=== PATIENT | male | born 1945 | race Caucasian/White ===

== ENCOUNTER 2018-02-08 13:10 | Observation (INO) | payer MEDICARE ==
--- NOTE | 2018-02-08 14:07 | C.PDOC ---
History Of Present Illness <Doug Caceres - Last Filed: 02/08/18 18:10> <Diann Nieves - Last Filed: 02/08/18 18:38> CC: Left foot ( Palmar) surface injury Patient is 72 year old male with past medical history of HTN, who presents to the ED with complaint of left foot injury. As per patient, he stepped on a sewing needle in his living room. Patient denies any heavy bleeding post injury. Patient denies any other symptoms. Patient does not recall his last tetanus injection. (Doug Caceres) History Per: Patient History/Exam Limitations: no limitations Onset/Duration Of Symptoms: Hrs Current Symptoms Are (Timing): Still Present Severity: None Pain Scale Rating Of: 0 Location: Left foot palmar surface Additional History Per: Patient <Doug Caceres - Last Filed: 02/08/18 18:10> <Diann Nieves - Last Filed: 02/08/18 18:38> Chief Complaint (Nursing): Lower Extremity Problem/Injury Past Medical History - Medical History PMH: HTN Surgical History: No Surg Hx Family History: States: No Known Family Hx - Social History Hx Tobacco Use: No Hx Alcohol Use: No Hx Substance Use: No <Doug Caceres - Last Filed: 02/08/18 18:10> Vital Signs: Last Vital Signs Temp 98.1 F 02/08/18 13:43 Pulse 81 02/08/18 13:43 Resp 18 02/08/18 13:43 BP 134/79 02/08/18 13:43 Pulse Ox 97 02/08/18 18:25 Review Of Systems Constitutional: Negative for: Fever, Chills, Weakness, Malaise Eyes: Negative for: Pain, Vision Change Respiratory: Negative for: Shortness of Breath Gastrointestinal: Negative for: Nausea, Vomiting, Abdominal Pain Musculoskeletal: Positive for: Foot Pain (Left) Neurological: Negative for: Weakness, Numbness <Doug Caceres - Last Filed: 02/08/18 18:10> Physical Exam - Physical Exam Appears: No Acute Distress Skin: Normal Color Head: Atraumatic, Normacephalic Eye(s): bilateral: EOMI Neck: Normal, Normal ROM Chest: Symmetrical Cardiovascular: Rhythm Regular Respiratory: Normal Breath Sounds Gastrointestinal/Abdominal: Normal Exam, Bowel Sounds, Soft, No Tenderness Extremity: Normal ROM, Tenderness (Left foot palmar surface tenderness, medially. < pea-size wound ), No Pedal Edema, No Calf Tenderness, No Deformity, No Swelling Pulses: Left Dorsalis Pedis: Normal Neurological/Psych: Oriented x3, Normal Speech <Doug Caceres - Last Filed: 02/08/18 18:10> ED Course And Treatment O2 Sat by Pulse Oximetry: 97 <Doug Caceres - Last Filed: 02/08/18 18:10> - Laboratory Results Result Diagrams: 02/08/18 18:10 ECG: Interpreted By Me ECG Rhythm: Sinus Rhythm ECG Interpretation: Normal Rate From EC Pulse Ox Interpretation: Normal - Radiology CXR: Interpreted by Me, Read By Radiologist CXR Interpretation: Yes: No Acute Disease - Physician Consult Information Time Consulting Physician Contacted: 17:18 Physician Contacted: Bradley Alexis Outcome Of Conversation: AWARE OF ER FINDINGS, PREFERS POD CONSULT W DR HAYWOOD <Diann Nieves - Last Filed: 02/08/18 18:38> Supervising Attending Note <Doug Caceres - Last Filed: 02/08/18 18:10> - Supervising Attending Note Comment: RESIDENT DR CACERES - Attestation: I have personally seen and examined this patient.: Yes I have fully participated in the care of the patient.: Yes I have reviewed all pertinent clinical information, including history, physical exam and plan: Yes <Diann Nieves - Last Filed: 02/08/18 18:38> - Notes: Notes:: ELIDIA NAIL POSSIBLE FB RETAINED L FOOT ONSET JACKSPOOLER. DENIES OTHER ASSOC SX. EXAM MILD DIST NONTOXIC. L FOOT TINY PUNCTATE LESION SOLE FOOT. NO PALP SUBCUT FB. NO DC, BLEEDING, ERYTHEMA (Diann Nieves) Medical Decision Making <Doug Cacerse - Last Filed: 02/08/18 18:10> <Diann Nieves - Last Filed: 02/08/18 18:38> Medical Decision Making: Left foot X-ray: Retained product of foreign body ( Nail). Official report: 1.5 mm radiopaque needle in the plantar soft tissues. Discussed case with podiatry resident; Podiatry examined patient at bedside in fast track and as per discussion between Podiatry resident and on-call attending , medical decision was made for 7:15pm for OR time with on-call attending. Patient's PMD wsa made aware and was requesting a different precision machinist for consultation. After long discussion, between attendings, patient's PMD is agreeable to on-call precision machinist team and patient will be going to the OR this evening. (Doug Caceres) Disposition Discussed With : Diann Nieves <Doug Caceres - Last Filed: 02/08/18 18:10> - Disposition Disposition Time: 17:22 - POA Present On Arrival: Falls Or Trauma <Diann Nieves - Last Filed: 02/08/18 18:38> - Disposition Disposition: HOSPITALIZED Condition: STABLE - Clinical Impression Clinical Impression: Foreign body in foot
[2018-02-08] MEDS ORDERED: Tdap Vaccine 0.5 ml Vial (10-64 yrs) IM ONE ×3 (14:38→17:27)
[2018-02-08] MEDS ORDERED: Tetanus/Diphtheria Toxoids 0.5 ml Syringe IM ONE ×3 (15:15→16:05)
--- NOTE | 2018-02-08 15:31 | RAD ---
Date of service: 02/08/2018 PROCEDURE: Left Foot Radiographs. HISTORY: Left foot palmar surface injury, Stepped on a needle COMPARISON: None. FINDINGS: BONES: Bone alignment and mineralization are normal. There is no acute displaced fracture or bone destruction. JOINTS: Normal. SOFT TISSUES: There is a 1.5 cm linear radiopaque foreign body in the plantar soft tissues. OTHER FINDINGS: None. IMPRESSION: 1.5 mm radiopaque needle in the plantar soft tissues.
[2018-02-08] MEDS ORDERED: Lidocaine 1% Inj (20ml) INFIL ONE (16:01)
[2018-02-08] MEDS ORDERED: Lidocaine 2% MPF (5 ml) Inj ONE ×2 (16:03→18:53)
[2018-02-08] MEDS ORDERED: Sodium Chloride 0.9% 1,000 ML IV ONE (17:15)
--- NOTE | 2018-02-08 18:01 | RAD ---
HISTORY: Pre Op COMPARISON: None available. TECHNIQUE: Chest PA and lateral FINDINGS: LUNGS: Hyperinflation may be seen in the setting of COPD. Increased lucencies especially within the bilateral upper lung suarez compatible with underlying emphysema. No focal consolidation. Please note that chest x-ray has limited sensitivity for the detection of pulmonary masses. PLEURA: No significant pleural effusion identified. No definite pneumothorax . CARDIOVASCULAR: Heart size appears within normal limits. OSSEOUS STRUCTURES: Degenerative changes of the spine. VISUALIZED UPPER ABDOMEN: Unremarkable. OTHER FINDINGS: None. IMPRESSION: COPD/emphysema.
[2018-02-08] MEDS ORDERED: Sodium Chloride 0.9% 1,000 ML ONE (18:04)
[2018-02-08 18:13] LABS: BASO # 0.1 K/uL (0.0-0.2); EOS # 0.3 K/uL (0.0-0.7); EOS % 4.3 % (0.0-4.0); HEMOGLOBIN 13.9 g/dL (12.0-18.0); LYMPH # 1.5 K/uL (1.0-4.3); LYMPH % 22.5 % (20.0-40.0); MEAN CELL VOLUME 93.4 fL (80.0-94.0); MEAN CORPUSCULAR HEMOGLOBIN 31.9 pg (27.0-31.0); MEAN CORPUSCULAR HGB CONC 34.2 g/dL (33.0-37.0); MEAN PLATELET VOLUME 7.6 fL (7.2-11.7); MONO # 0.6 K/uL (0.0-0.8); MONO % 9.8 % (0.0-10.0); NEUT # 4.1 K/uL (1.8-7.0); NEUT % 62.4 % (50.0-75.0); NRBC % 0.1 % (0.0-2.0); RBC 4.36 Mil/uL (4.40-5.90); RED CELL DISTRIBUTION WIDTH 13.3 % (11.5-14.5); WHITE BLOOD COUNT 6.6 K/uL (4.8-10.8)
[2018-02-08 18:38] LABS: PROTHROMBIN TIME 11.2 SECONDS (9.7-12.2)
[2018-02-08 18:51] LABS: BLOOD UREA NITROGEN 22 mg/dL (9-20); CALCIUM 9.4 mg/dl (8.6-10.4); GFR NON-AFRICAN AMERICAN > 60
[2018-02-08] MEDS ORDERED: Bupivacaine 0.25% 20 ML INJ IJ ONE (18:53)
[2018-02-08] MEDS ORDERED: Piperacillin/Tazobact 3.375 gm 100 ML IVPB ONE (18:53)
[2018-02-08 18:57] LABS: SQUAMOUS EPITHIAL < 1 /hpf (0-5); URINE BACTERIA RARE (<OCC); URINE BILIRUBIN NEGATIVE (NEGATIVE); URINE BLOOD NEGATIVE (NEGATIVE); URINE CLARITY Clear (Clear); URINE COLOR Straw (YELLOW); URINE GLUCOSE (UA) NORMAL (Normal); URINE LEUKOCYTE ESTERASE NEG Leu/uL (Negative); URINE PROTEIN NEGATIVE (NEGATIVE); URINE UROBILINOGEN NORMAL mg/dL (0.2-1.0)
[2018-02-08] MEDS ORDERED: Midazolam 2 MG/2 ML VIAL ONE (19:36)
--- NOTE | 2018-02-08 19:52 | CP.PCM.CON ---
History of Present Illness - History of Present Illness History of Present Illness: cc: stepped on a sewing needle HPI: pt is a 72 yo male who had been following [facility] for 2 years now. He is a known hypertensive, with very mild hyperlipidemia controlled with diet. When initially seen 2 years ago, Mr. Elizabeth was pre-diabetic with a high of 6.3 Since then, he had been very compliant with treatment and has managed to get his hgbA1c down to normal levels on diet and lifestyle changes alone. Pt comes in today complaining of having stepped on a needle. Indeed a sharp, metallic object almost abuts the plantar/ventral surface of the calcaneus. I was asked to evaluate the patient from a medical [place] for possible OR tonight. Review of Systems - Review of Systems Review of Systems: Calm, not anxious, no excessive pain noted - Constitutional Constitutional: absent: As Per HPI, Anorexia, Chills, Daytime Sleepiness, Excessive Sweating, Fatigue, Fever, Frequent Falls, Headache, Increased Appetite , Lethargy, Malaise, Night Sweats, Snoring, Sleep Apnea, Weight Gain, Weight Loss, Weakness, Other - EENT Eyes: absent: As Per HPI, Blind Spots, Blurred Vision, Change in Vision, Decreased Night Vision, Diplopia, Discharge, Dry Eye, Exophthalmos, Floaters, Irritation, Itchy Eyes, Loss of Peripheral Vision, Pain, Photophobia, Requires Corrective Lenses, Sees Flashes, Spots in Vision, Tunnel Vision, Other Visual Disturbances, Loss of Vision, Other Ears: Abnormal Hearing Nose/Mouth/Throat: absent: As Per HPI, Epistaxis, Nasal Congestion, Nasal Discharge, Nasal Obstruction, Nasal Trauma, Nose Pain, Post Nasal Drip, Sinus Pain, Sinus Pressure, Bleeding Gums, Change in Voice, Dental Pain, Dry Mouth, Dysphagia, Halitosis, Hoarsness, Lip Swelling, Mouth Lesions, Mouth Pain, Odynophagia, Sore Throat, Throat Swelling, Tongue Swelling, Facial Pain, Neck Pain, Neck Mass, Other - Cardiovascular Cardiovascular: absent: As Per HPI, Acrocyanosis, Chest Pain, Chest Pain at Rest , Chest Pain with Activity, Claudication, Diaphoresis, Dyspnea, Dyspnea on Exertion, Edema, Irregular Heart Rhythm, Pain Radiating to Arm/Neck/Jaw, Leg Edema, Leg Ulcers, Lightheadedness, Orthopnea, Palpitations, Paroxysmal Nocturnal Dyspnea, Pedal Edema, Radiating Pain, Rapid Heart Rate, Slow Heart Rate, Syncope, Other - Respiratory Respiratory: absent: As Per HPI, Cough, Dyspnea, Hemoptysis, Dyspnea on Exertion , Wheezing, Snoring, Stridor, Pain on Inspiration, Chest Congestion, Excessive Mucous Production, Change in Mucous Color, Pain with Coughing, Other - Gastrointestinal Gastrointestinal: absent: As Per HPI, Abdominal Pain, Belching, Bloating, Change in Bowel Habits, Change in Stool Character, Coffee Ground Emesis, Constipation, Cramping, Diarrhea, Dyspepsia, Dysphagia, Early Satiety, Excessive Flatus, Fecal Incontinence, Heartburn, Hematemesis, Hematochezia, Loose Stools, Melena, Nausea, Odynophagia, Temesmus, Vomiting, Other - Genitourinary Genitourinary: absent: As Per HPI, Change in Urinary Stream, Difficulty Urinating, Dysuria, Flank Pain, Hematuria, Pyuria, Nocturia, Urinary Incontinence, Urinary Frequency, Urinary Hesitance, Urinary Urgency, Voiding Freq/Small Amts, Freq UTI, Hx Renal/Bladder Calculi, Hx /Renal Surgery, Bladder Distension, Other - Musculoskeletal Musculoskeletal: absent: As Per HPI, Abnormal Gait, Arthralgias, Atrophy, Back Pain, Deformity, Joint Swelling, Limited Range of Motion, Loss of Height, Muscle Cramps, Muscle Weakness, Myalgias, Neck Pain, Numbness, Radiating Pain into Limb, Stiffness, Tingling, Other Additional comments: + metallic object underneath calcaneus on xray - Neurological Neurological: absent: As Per HPI, Abnormal Gait, Abnormal Hearing, Abnormal Movements, Abnormal Speech, Behavioral Changes, Burning Sensations, Confusion, Convulsions, Disequilibrium, Dizziness, Numbness, Focal Weakness, Frequent Falls , Headaches, Lack of Coordination, Loss of Vision, Memory Loss, Paresthesias, Radicular Pain, Restless Legs, Sensory Deficit, Syncope, Tingling, Tremor, Vertigo, Weakness, Other Visual Disturbances, Other - Psychiatric Psychiatric: absent: As Per HPI, Abnormal Sleep Pattern, Anhedonia, Anxiety, Auditory Hallucinations, Behavioral Changes, Change in Appetite, Change in Libido, Confusion, Depression, Difficulty Concentrating, Hallucinations, Homicidal Ideation, Hopelessness, Irritability, Memory Loss, Mood Swings, Panic Attacks, Paranoia, Suicidal Ideation, Visual Hallucinations, Tactile Hallucinations, Other - Endocrine Endocrine: absent: As Per HPI, Change in Body Appearance, Change in Libido, Cold Intolorance, Deepening of Voice, Excessive Sweating, Fatigue, Flushing, Heat Intolorance, Increase in Ring/Shoe/Hat Size, Palpitations, Polydipsia, Polyphagia, Polyuria, Other - Hematologic/Lymphatic Hematologic: absent: As Per HPI, Easy Bleeding, Easy Bruising, Lymphadenopathy, Other Past Patient History - Tetanus Immunizations Tetanus Immunization: Unknown - Past Medical History & Family History Past Medical History?: Yes - Past Social History Smoking Status: Unknown If Ever Smoked Chewing Tobacco Use: No Cigar Use: No Alcohol: Other (suspect) Drugs: Denies Home Situation {Lives}: Alone - CARDIAC Hx Cardiac Disorders: No Hx Angina: No Hx Atrial Fibrillation: No Hx Cardia Arrhythmia: No Hx Circulatory Problems: No Hx Congestive Heart Failure: No (??) Hx Heart Attack: No Hx Heart Murmur: No Hx Heart Transplant: No Hx Hypercholesterolemia: No Hx Hypertension: Yes Hx Hypotension: No Hx Internal Defibrillator: No Hx Mitral Valve Prolapse: No Hx Pacemaker: No Hx Peripheral Edema: No Hx Peripheral Vascular Disease: No - PULMONARY Hx Respiratory Disorders: Yes Hx Chronic Obstructive Pulmonary Disease (COPD): Yes Hx Emphysema: No Hx Lung Cancer: No Hx Pneumonia: No Hx Pulmonary Edema: No Hx Pulmonary Embolism: No Hx Respiratory Aspiration: No Hx Respiratory Tract Infection: No Hx Sleep Apnea: No Hx Tuberculosis: No - NEUROLOGICAL Hx Neurological Disorder: No Hx Alzheimer's Disease: No HX Cerebrovascular Accident: No Hx Dementia: No Hx Dizziness: No Hx Meningitis: No Hx Migraine: No Hx Multiple Sclerosis: No Hx Paralysis: No Hx Parkinson's Disease: No Hx Seizures: No Hx Syncope: No Hx Transient Ischemic Attacks (TIA): No Hx Vertigo: No - ENDOCRINE/METABOLIC Hx Endocrine Disorders: Yes Hx Diabetes Mellitus Type 2: Yes - GASTROINTESTINAL Hx Gastrointestinal Disorders: Yes - PSYCHIATRIC Hx Substance Use: No - SURGICAL HISTORY Hx Surgeries: No Meds Allergies/Adverse Reactions: Allergies Allergy/AdvReac Type Severity Reaction Status Date / Time No Known Allergies Allergy Verified 02/08/18 13:46 - Medications Medications: Current Medications Sodium Chloride (Sodium Chloride 0.9%) 1,000 mls @ 100 mls/hr IV .Q10H ONE Stop: 02/09/18 03:14 Last Admin: 02/08/18 18:04 Dose: 100 mls/hr Results - Vital Signs Recent Vital Signs: Last Vital Signs Temp 98.2 F 02/08/18 18:42 Pulse 67 02/08/18 18:42 Resp 20 02/08/18 18:42 BP 122/63 02/08/18 18:42 Pulse Ox 67 L 02/08/18 18:42 - Labs Result Diagrams: 02/08/18 18:10 02/08/18 18:10 Labs: Laboratory Results - last 24 hr 02/08/18 02/08/18 02/08/18 18:10 18:10 18:10 WBC 6.6 RBC 4.36 L Hgb 13.9 Hct 40.7 MCV 93.4 MCH 31.9 H MCHC 34.2 RDW 13.3 Plt Count 222 MPV 7.6 Neut % (Auto) 62.4 Lymph % (Auto) 22.5 [place] % (Auto) 9.8 Eos % (Auto) 4.3 H Baso % (Auto) 1.0 Neut # (Auto) 4.1 Lymph # (Auto) 1.5 [place] # (Auto) 0.6 Eos # (Auto) 0.3 Baso # (Auto) 0.1 PT 11.2 INR 1.0 APTT 35 H Sodium 143 Potassium 4.1 Chloride 105 Carbon Dioxide 30 Anion Gap 12 BUN 22 H Creatinine 0.9 Est GFR ( Amer) > 60 Est GFR (Non-Af Amer) > 60 Random Glucose 105 Calcium 9.4 Urine Color Urine Clarity Urine pH Ur Specific [place] Urine Protein Urine Glucose (UA) Urine Ketones Urine Blood Urine Nitrate Urine Bilirubin Urine Urobilinogen Ur Leukocyte Esterase Urine WBC (Auto) Ur Squamous Epith Cells Urine Bacteria Blood Type Antibody Screen 02/08/18 02/08/18 18:10 18:51 WBC RBC Hgb Hct MCV MCH MCHC RDW Plt Count MPV Neut % (Auto) Lymph % (Auto) [place] % (Auto) Eos % (Auto) Baso % (Auto) Neut # (Auto) Lymph # (Auto) [place] # (Auto) Eos # (Auto) Baso # (Auto) PT INR APTT Sodium Potassium Chloride Carbon Dioxide Anion Gap BUN Creatinine Est GFR ( Amer) Est GFR (Non-Af Amer) Random Glucose Calcium Urine Color Straw Urine Clarity Clear Urine pH 6.0 Ur Specific [place] 1.011 Urine Protein Negative Urine Glucose (UA) Normal Urine Ketones Negative Urine Blood Negative Urine Nitrate Negative Urine Bilirubin Negative Urine Urobilinogen Normal Ur Leukocyte Esterase Neg Urine WBC (Auto) 1 Ur Squamous Epith Cells < 1 Urine Bacteria Rare Blood Type A POSITIVE Antibody Screen Negative
--- NOTE | 2018-02-08 20:17 | CP.PCM.CON ---
History of Present Illness - History of Present Illness History of Present Illness: Podiatry consult notes for attending Dr. Mora 72 y/o M patient with PMH of HTN seen and evaluated in ED for pain in his Left foot. Patient states that he stepped on a sawing needle this morning at 11.30 am. patient states that the needle was broken inside his foot. Patient states that his foot is hurting him the pain is 5/10 on VAS scale. he states that he had minimal bleeding from the surgery site. Patient states that he ate the last meal at 11.30 am. He denies any recent F/N/V/C r SOB. He denies any other pedal complaint. patient states that he is not sure about his tetanus vaccination states and most probably didn't receive any tetanus vaccine in the last 10 years. PMH: HTN PSH: None Allergies: None. Social Hx: Denies smoking, ETOH or illicit drug use. Past Patient History - Past Social History Smoking Status: Never Smoked - CARDIAC Hx Hypertension: Yes - PSYCHIATRIC Hx Substance Use: No - SURGICAL HISTORY Hx Surgeries: No Meds Allergies/Adverse Reactions: Allergies Allergy/AdvReac Type Severity Reaction Status Date / Time No Known Allergies Allergy Verified 02/08/18 13:46 - Medications Medications: Current Medications Sodium Chloride (Sodium Chloride 0.9%) 1,000 mls @ 100 mls/hr IV .Q10H ONE Stop: 02/09/18 03:14 Last Admin: 02/08/18 18:04 Dose: 100 mls/hr Physical Exam - Constitutional Appears: Well, Non-toxic, No Acute Distress - Head Exam Head Exam: ATRAUMATIC, NORMOCEPHALIC - Extremities Exam Additional comments: Focused Left LE extremity exam: Vasc: DP/PT 2/4. Cap refill < 3 sec X 10, Temp Gradient warm to cool. No edema or varicosities. Neuro: protective sensation and gross sensation intact b/l. Derm: Small spot of port of needle entry noted in on the medial side of the left heel. No active bleeding. no signs of bacterial infection.\ MSK: Pain on deep palpation of the left heel on the medial side. Muscle power intact 5/5 in all groups. - Neurological Exam Neurological exam: Alert, Oriented x3 - Psychiatric Exam Psychiatric exam: Normal Affect, Normal Mood Results - Vital Signs Recent Vital Signs: Last Vital Signs Temp 98.2 F 02/08/18 18:42 Pulse 67 02/08/18 18:42 Resp 20 02/08/18 18:42 BP 122/63 02/08/18 18:42 Pulse Ox 67 L 02/08/18 18:42 - Labs Result Diagrams: 02/08/18 18:10 02/08/18 18:10 Labs: Laboratory Results - last 24 hr 02/08/18 02/08/18 02/08/18 18:10 18:10 18:10 WBC 6.6 RBC 4.36 L Hgb 13.9 Hct 40.7 MCV 93.4 MCH 31.9 H MCHC 34.2 RDW 13.3 Plt Count 222 MPV 7.6 Neut % (Auto) 62.4 Lymph % (Auto) 22.5 [place] % (Auto) 9.8 Eos % (Auto) 4.3 H Baso % (Auto) 1.0 Neut # (Auto) 4.1 Lymph # (Auto) 1.5 [place] # (Auto) 0.6 Eos # (Auto) 0.3 Baso # (Auto) 0.1 PT 11.2 INR 1.0 APTT 35 H Sodium 143 Potassium 4.1 Chloride 105 Carbon Dioxide 30 Anion Gap 12 BUN 22 H Creatinine 0.9 Est GFR ( Amer) > 60 Est GFR (Non-Af Amer) > 60 Random Glucose 105 Calcium 9.4 Urine Color Urine Clarity Urine pH Ur Specific [place] Urine Protein Urine Glucose (UA) Urine Ketones Urine Blood Urine Nitrate Urine Bilirubin Urine Urobilinogen Ur Leukocyte Esterase Urine WBC (Auto) Ur Squamous Epith Cells Urine Bacteria Blood Type Antibody Screen 02/08/18 02/08/18 18:10 18:51 WBC RBC Hgb Hct MCV MCH MCHC RDW Plt Count MPV Neut % (Auto) Lymph % (Auto) [place] % (Auto) Eos % (Auto) Baso % (Auto) Neut # (Auto) Lymph # (Auto) [place] # (Auto) Eos # (Auto) Baso # (Auto) PT INR APTT Sodium Potassium Chloride Carbon Dioxide Anion Gap BUN Creatinine Est GFR ( Amer) Est GFR (Non-Af Amer) Random Glucose Calcium Urine Color Straw Urine Clarity Clear Urine pH 6.0 Ur Specific [place] 1.011 Urine Protein Negative Urine Glucose (UA) Normal Urine Ketones Negative Urine Blood Negative Urine Nitrate Negative Urine Bilirubin Negative Urine Urobilinogen Normal Ur Leukocyte Esterase Neg Urine WBC (Auto) 1 Ur Squamous Epith Cells < 1 Urine Bacteria Rare Blood Type A POSITIVE Antibody Screen Negative Assessment & Plan - Assessment and Plan (Free Text) Assessment: 72 y/o M patient seen and evaluated in the ED for foreign body in his left foot Plan: Patient seen and evaluated in the ED Plan discussed in details with attending Dr. Mora Chart labs and vitals reviewed; no leukocytosis, Afebrile X-ray left foot reviewed; Foreign body embedded deep in the left heel near calcaneous. Discussed with the patient the need to take him to the OR to extract the foreign body under imaging. benefits, risks and possible complications of the surgery explained to the patient. Patient agreed on doing the surgery. Primary team contacted to clear the patient for surgery. EKG and chest x-ray done for the patient while in the ED. Patient recieved initial dose of moxifloxacine in the ED. Patient tetanus status confirmed with the patient. ED doctor confirmed that the patient will receive a tetanus toxoid vaccine in the ED. Patient will be take to the OR today night for foreign body removal under imaging. Patient will follow up at doctor Mora's office upon discharge. - Date & Time Date: 02/08/18 Time: 16:00
[2018-02-08 20:39] VITALS: O2SAT 99
--- NOTE | 2018-02-08 20:47 | PCM.SURG1 ---
Surgeon's Initial Post Op Note - Surgeon's Notes Surgeon: Dr. Donta Mora. DPM Aviation Operations Specialist: Dr. Romain Kohler. DPM, PGY1 Type of Anesthesia: IV Sedation, Local Anesthesia Administered By: Dr. Taneva. BERNARDO Pre-Operative Diagnosis: Left foot foreign body Operative Findings: See dictation. Injectables: 17 cc lidocaine 2% and Marcaine 0.5% 1:1 mixture for local infilteration. Materials: 3-0 prolene. Post-Operative Diagnosis: Same Operation Performed: Left foot foreign body extraction under imaging. Specimen/Specimens Removed: Foreign body (Piece of sewing needle) Estimated Blood Loss: EBL {In ML}: 1 Blood Products Given: N/A Drains Used: No Drains Post-Op Condition: Good Date of Surgery/Procedure: 02/08/18 Time of Surgery/Procedure: 20:48
[2018-02-08 20:53] VITALS: BP 123/76
[2018-02-08] MEDS ORDERED: Acetaminophen-Codeine 300/30 mg Tab PO PRN (20:57)
[2018-02-08 21:26] VITALS: PULSE 71; RESP 15; TEMP 97.6
[2018-02-08] MEDS ORDERED: Amoxicillin-Clav 875-125 mg Tab PO SCH (22:00)
--- NOTE | 2018-02-09 06:21 | OP ---
Copied To: Romain Kohler MD Attending MD: Donta Candelaria DPM PROCEDURE DATE: 02/08/2018 SURGEON: Donta Candelaria DPM STORE DETECTIVE: Romain Kohler MD, DPM, PGY-1 ANESTHESIOLOGIST: Negrito Valdez MD TYPE OF ANESTHESIA: IV sedation with local anesthesia. PREOPERATIVE DIAGNOSIS: Left foot foreign body. POSTOPERATIVE DIAGNOSIS: Left foot foreign body. NAME OF THE PROCEDURE: Left foot foreign body extraction under imaging. INDICATION: The patient is a 72-year-old male with the above diagnosis. The patient stepped over a sew needle that stuck into his left heal and got broken inside. The needle was anabelle and deep near the calcaneus bone. The decision was taken to emergently extract it under imaging as it might cause infection to the nearby bone and soft tissue. The patient signed the consent after careful explanation of risks, benefits, complications, and alternatives for surgical procedure. No guarantees were given nor implied. PREPARATION: The patient was brought to the operating room and placed on the operating room table in a supine position. Time-out was performed for identification of the correct patient and the procedure. The patient received a total of 17 mL of 0.5% Marcaine and 2% lidocaine, 1:1 in a local infiltration block fashion. Once local anesthesia was achieved, the right foot was then prepped and draped in a normal sterile manner and the procedure began. DESCRIPTION OF PROCEDURE: Attention was directed to the patient's right foot. With the use of a #15 blade, a stab incision was made to the plantar-medial aspect of right heal. The incision was about 1 cm in length, spreading out of the deep tissues done using curved hemostat. Under C-arm imaging, the foreign body could be identified and located, and using the curved hemostat, extraction of the foreign body was done. Foreign body extracted completely, and the sew needle looks anabelle. The needle sent to the pathology. Flushing then done to the wound using sterile saline. Hemostasis achieved by direct compression. A 3-0 Prolene sutures were used to close the wound in a simple suture fashion, 3 simple sutures were made to close the surgical wound completely. The surgical site was then dressed using Xeroform, sterile gauze, Kerlix, and NEL bandage. POSTOPERATIVE CONDITION: The patient tolerated the local anesthesia and the procedure well, and was escorted to the PACU with vital signs stable and neurovascular status intact to the right foot. The patient is to bear weight as tolerated to the right lower extremity in a surgical shoe. The patient provided in the PACU with prescriptions of Augmentin 875 mg BID. and Tylenol #3 for pain Q 6-8 hours PRN. The patient will follow up with Dr. Thompson at his office upon discharge. Romain Kohler MD Donta Candelaria DPM MTDDerrell
--- NOTE | 2018-02-09 08:55 | RAD ---
Date of service: 02/08/2018 PROCEDURE: Intraoperative Fluoroscopy. HISTORY: Removal of FB Left Foot in OR FINDINGS: Fluoroscopic assistance was provided for intraoperative retained foreign body removal left foot. Please refer to the operative report from MAMADOU Avalos. 82.6 seconds of fluoro time was utilized with a cumulative radiation dose 2.78 mGy.
--- NOTE | 2018-02-11 11:27 | CARD ---
APPROVED REPORT Date of service: 02/08/2018 EKG Measurement Heart [id number] <Conclusion> Normal sinus rhythm Left axis deviation Abnormal ECG
== END 2018-02-08 21:15 | disposition home or self-care (01) ==
LOC: C.ER 13:10 → C.9E 18:26 → C.3T 18:57
PROVIDERS: ADMIT Family Medicine; ATTEND Family Medicine
DX: S90.852A Superficial foreign body, left foot, initial encounter (principal); W26.8XXA Contact with other sharp object(s), not elsewhere classified, initial encounter; W45.8XXA Other foreign body or object entering through skin, initial encounter
CPT/HCPCS: 28192; 71046; 73630; 80048; 81001; 85025; 85610; 85730; 86850; 86900; 88300; 90471; 90715; 93005; 99285; G0378; J2250; J2543; J3010; J7030